=== PATIENT | male | born 1990 | race Caucasian/White ===

== ENCOUNTER 2016-05-02 16:21 | Emergency (ER) | payer OTHER ==
[2016-05-02 16:51] LABS: BASOPHIL 0.2 % (0-2); EOSINOPHIL 1.2 % (0-5); HCT 43.5 % (42.0-52.0); HGB 15.3 g/dl (13.2-18.0); LYMPHOCYTE 21.1 % (15-48); MCHC 35.2 g/dL (32.0-36.0); MCV 85.3 fL (78.0-100.0); MONOCYTE 7.5 % (0-12); MPV 10.3 fL (6.0-9.5); PLT 218 K/uL (150-400); RDW 12.3 % (11.5-14.0); WBC 8.3 K/uL (4.0-10.5)
[2016-05-02 17:12] LABS: BILIRUBIN - TOTAL 0.7 mg/dL (0.1-1.0); GLOBULIN (CALCULATION) 2.3 g/dL (2.2-4.2); POTASSIUM 3.9 mmol/L (3.5-5.1); TOTAL PROTEIN 7.3 g/dL (6.4-8.3)
== END 2016-05-02 18:19 | disposition home or self-care (01) ==
LOC: FER 16:21
PROVIDERS: Internal Medicine
DX: R10.13 Epigastric pain (principal); R63.0 Anorexia
CPT/HCPCS: 36415; 80053; 83690; 84484; 85025; 93005